=== PATIENT | male | born 1995 | race Caucasian/White ===

== ENCOUNTER 2023-04-03 12:04 | Emergency (ER) | payer SELFPAY ==
[2023-04-03 12:10] VITALS: BP 145/96; PULSE 103; RESP 20; TEMP 36.5; O2SAT 98
[2023-04-03 14:21] VITALS: BP 146/98; RESP 18
--- NOTE | 2023-04-03 14:43 | ED_ITS ---
HPI - Extremity Injury (Lower) General Chief Complaint: Extremity Injury, Lower Stated Complaint: leg pain Time Seen by Provider: 04/03/23 14:33 History of Present Illness HPI Narrative: Patient is a 27-year-old male who presents ER with right thigh discomfort. Reports 1 week ago he was walking when he had a sneeze and his right leg gave out in front of him. He did not fall or strike his head. He has had some soreness in the leg since then. Radiates to the knee. No swelling/numb ness/tingling. No additional injury. He has not been walking with a limp. He has not tried any pain medication. Related Data Allergies Allergy/AdvReac Type Severity Reaction Status Date / Time No Known Allergies Allergy Mild Verified 04/03/23 14:20 Review of Systems Constitutional: Constitutional: Reports no additional constitutional complaints Musculoskeletal: Musculoskeletal: Denies arthralgias, Denies joint swelling and Denies muscle cramps Neurologic: Denies focal weakness and Denies numbness PMFSH Past Medical History Medical History (Updated 04/03/23 @ 19:02 by King Rosenberg MD) Healthy adult male Surgical History Surgical History (Updated 04/03/23 @ 19:02 by King Rosenberg MD) No history of previous surgery Exam Narrative: GENERAL: Well-appearing, well-nourished, and in no acute distress. HEAD: Normocephalic, atraumatic. CHEST: Clear to auscultation. No respiratory distress. HEART: Regular rate and rhythm. Normal peripheral pulses. EXTREMITIES: Normal range of motion. No edema. No evidence of trauma. SKIN: Warm, dry, no rash. NEURO: Alert and oriented x3. PSYCH: Normal mood and affect. Course Course Emergency Course: Normal exam. No indication for x-ray at this time. No lower extremity swelling or cramping. Neurovascular intact. Recommend anti-inflammatories and follow-up with PCP. Vital Signs Vital signs: Vital Signs Temperature 97.7 F 04/03/23 12:10 Pulse Rate 103 H 04/03/23 12:10 Respiratory Rate 20 04/03/23 12:10 Blood Pressure 145/96 H 04/03/23 12:10 Pulse Oximetry 98 04/03/23 12:10 Oxygen Delivery Room Air 04/03/23 12:10 Temperature 97.7 F 04/03/23 12:10 Pulse Rate 103 H 04/03/23 12:10 Respiratory Rate 18 04/03/23 14:21 Blood Pressure 146/98 H 04/03/23 14:21 Pulse Oximetry 98 04/03/23 12:10 Oxygen Delivery Room Air 04/03/23 12:10 Discharge Plan Discharge Clinical Impression: Quadriceps strain Patient Disposition: Home, Self-Care Condition: Stable Instructions: Muscle Strain (ED) Additional Instructions: Return the ER if you suffer new injury, you have chest pain or shortness of breath, you have right sided leg swelling, or you have additional concerns. Prescriptions: New naproxen 375 mg tablet 375 mg PO BID Qty: 14 0RF Follow-up/Referrals: PHYSICIAN,HEALTH SAFETY ENGINEER [Primary Care Provider] - Yogesh Kee MD [Physician] - 1 Week
== END 2023-04-03 15:05 | disposition home or self-care (01) ==
LOC: ANHED 14:58
PROVIDERS: Emergency Provider Emergency Medicine
DX: S76.111A Strain of right quadriceps muscle, fascia and tendon, initial encounter (principal); X50.9XXA Other and unspecified overexertion or strenuous movements or postures, initial encounter
CPT/HCPCS: 99283

== ENCOUNTER 2023-05-26 22:55 | Emergency (ER) | payer SELFPAY ==
[2023-05-26] VITALS (7 sets, daily range): BP systolic 137–149; BP diastolic 77–104; PULSE 75–110; RESP 9–18; TEMP 36.3; O2SAT 98
--- NOTE | 2023-05-26 23:00 | ECG_ITS ---
Measurements Intervals [place] Rate: 88 P: 66 MS: 159 QRS: 29 QRSD: 106 T: 64 QT: 355 QTc: 432 Interpretive Statements SINUS RHYTHM WITH MARKED SINUS ARRHYTHMIA INCOMPLETE RIGHT BUNDLE BRANCH BLOCK NONSPECIFIC T-WAVE ABNORMALITY NO PREVIOUS ECG AVAILABLE FOR COMPARISON Electronically Signed On 05-28-2023 10:16:49 [employer] by Yash Petersen M.D.
--- NOTE | 2023-05-26 23:09 | PC.NURSE ---
Upon family arrival, pt family members states that pt has a hx of fentanyl use, Percocet use, and alcohol abuse. Pt states he is unsure what he took tonight. Pt family member also states that he is unsure what he took tonight as well. EDP Dr. Billings notified of pt condition. Upon family arrival pt began vomitting. Pt is AO x 4 for this RN with a patent airway.
[2023-05-26 23:10] LABS: Hematocrit 43.7 % (42.0-52.0); Hemoglobin 14.3 g/dL (14.0-18.0); Mean Corpuscular HGB Conc 32.7 g/dl (32-36); Mean Corpuscular Hemoglobin 30.4 pg (26-34); Platelet Count Result 312 k/mm3 (150-375); Red Cell Distribution Width 12.6 % (11.5-14.5); White Blood Count 14.1 K/mm3 (4.5-10.0)
[2023-05-26 23:23] LABS: Acetaminophen < 10 ug/mL (10-30); Alanine Aminotransferase 22 U/L (6-50); Albumin Level 4.8 g/dL (3.5-5.1); Alkaline Phosphatase 72 U/L (38-126); Anion Gap 15 mmol/L (8-16); Aspartate Amino Transferase 43 U/L (17-59); Bilirubin,Total 0.5 mg/dL (0.2-1.3); Blood Urea Nitrogen 5 mg/dL (9-20); Calcium 9.2 mg/dL (8.4-10.2); Carbon Dioxide 25 mmol/L (22-30); Chloride 100 mmol/L (98-107); Estimated CRCL calculation 99 ml/min; Estimated Glomerular Filt Rate > 60; Ethanol 173 mg/dL (<10); Glucose 134 mg/dL (65-110); Salicylate < 1.0 mg/dL (2-20); Sodium 140 mmol/L (137-145)
[2023-05-26] MEDS: ONDANSETRON INJ 4 MG/2 ML VIAL 8 MG IV PUSH (23:23)
[2023-05-26] MEDS: SODIUM CHLORIDE 0.9% IV 1,000 ML 999 ML IV CONT (23:24)
[2023-05-26 23:40] LABS: Atypical Lymphocytes Present; Band Neutrophils Percent 2 % (0-6); Eosinophils Absolute Manual 0.84 K/mm3 (0.02-0.5); Eosinophils Percent Manual 6 % (0-4); Large Platelets Present; Monocytes Absolute Manual 0.84 K/mm3 (0.1-0.90); Monocytes Percent Manual 6 % (3-9); Neutrophils Percent Manual 42 % (46-73); Schistocytes None Seen (NORMAL); Total Cells Counted 100
[2023-05-27] VITALS (25 sets, daily range): BP systolic 123–144; BP diastolic 73–93; PULSE 80–101; RESP 8–25; O2SAT 95–96
[2023-05-27 00:20] LABS: SARS-CoV-2 RNA PCR Negative (Negative)
[2023-05-27 00:37] LABS: Appearance Urine Cloudy (Clear); Bacteria Urine None Seen /hpf; Bilirubin Urine Negative (Negative); Blood Urine Negative (Negative); Color Urine Yellow (Yellow); Glucose Urine UA Negative (Negative); Ketones Urine Negative (Negative); Leukocyte Esterase Ur Negative LEU/UL (Negative); Nitrate Urine Negative (Negative); Non Pathogenic Casts 0-2; Protein Urine Negative (Negative); RBC Urine 0-2 /hpf (0-2); Specific Grav Ur 1.006 (1.001-1.035); Squamous Epithelial Cell Urine None seen /hpf (Few); Urobilinogen Urine 0.2 mg/dL (<2.0); WBC Urine 0-5 /hpf
[2023-05-27 00:48] LABS: Amphetamine Screen Urine Negative (Negative); Barbiturate Screen Urine Negative (Negative); Benzodiazepines Screen Urine Negative (Negative); Cannabinoid Screen Urine Positive (Negative); Cocaine Screen Urine Negative (Negative); Methadone Screen Urine Negative (Negative); Opiate Screen Urine Negative (Negative); Phencyclidine Screen Urine Negative (Negative)
[2023-05-27 00:58] LABS: Add Urine Microscopic? YES
--- NOTE | 2023-05-27 02:08 | PC.NURSE ---
Pt family member asked this RN for an update on pt care. THis RN provided an update about pt stability and that provider would be at bedside when they are available to provide an update. Pt family member stated that is what you said last time . This RN notified EDP Dr. Billings. EDP Dr. Billings made aware of patient family requesting an update.
--- NOTE | 2023-05-27 02:22 | ED.GENADULT ---
HPI - General Adult General Chief complaint: Overdose Stated complaint: od Time Seen by Provider: 05/27/23 01:33 History of Present Illness HPI narrative: 27-year-old male with opiate use disorder presenting after an unintentional overdose. Patient states he was snorting opiates get high. He was then found unresponsive by his family. He received multiple rounds of Narcan nasally without response. He then received IV Narcan and immediately woke up. Patient has no complaints this time. Related Data Allergies Allergy/AdvReac Type Severity Reaction Status Date / Time No Known Allergies Allergy Mild Verified 05/26/23 23:00 [facility] Past Medical History Medical History Healthy adult male Surgical History Surgical History No history of previous surgery Social History Social History Substance use type: marijuana Exam Narrative: APPEARANCE: No apparent distress. Head: atraumatic. EYES: EOMI, NOSE: Atraumatic NECK: Trachea midline RESPIRATORY: CTAB, CARDIOVASCULAR: RRR, no peripheral edema ABDOMINAL: Non-distended MUSCULOSKELETAl: No obvious deformities NEURO: Alert. Moving 4/4 extremities SKIN:: Warm, dry. Normal color PSYCHIATRIC: Normal affect Course Vital Signs Vital signs: Vital Signs Temperature 97.4 F L 05/26/23 22:52 Pulse Rate 75 05/26/23 22:52 Respiratory Rate 16 05/26/23 22:52 Blood Pressure 137/77 05/26/23 22:52 Pulse Oximetry 98 05/26/23 22:52 Oxygen Delivery Room Air 05/26/23 22:52 Temperature 97.4 F L 05/26/23 22:52 Pulse Rate 85 05/27/23 02:04 Respiratory Rate 20 05/27/23 02:04 Blood Pressure 126/79 05/27/23 01:46 Pulse Oximetry 98 05/26/23 22:52 Oxygen Delivery Room Air 05/26/23 22:52 Medical Decision Making MDM Narrative Medical decision making narrative: -Course: 27-year-old male presenting with unintentional overdose. Patient was monitored in the ED for 4 hours. Patient had some nausea but no recurrence of opiate coma. Patient will be discharged into custody of his family with return precautions. Given RX for Zofran and Narcan. 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 Likely stress reaction. Urine positive for THC. Potassium 3.0. Patient is tolerating p.o. at this will be repleted with food. Independent EKG interpretation: Rhythm [sinus], Rate [88], [place] -[normal], SD -[normal], QRS [narrow], QTC [normal], T waves -[negative for concerning inversions], ST Segments - [Negative for concerning elevations] Final interpretations: [Normal Sinus Rhythm] -Interventions: Zofran -Shared decision making / Disposition: Discharged -RX Zofran, Narcan Vital Signs Vital Signs: Vital Signs Temperature 97.4 F L 05/26/23 22:52 Pulse Rate 75 05/26/23 22:52 Respiratory Rate 16 05/26/23 22:52 Blood Pressure 137/77 05/26/23 22:52 Pulse Oximetry 98 05/26/23 22:52 Oxygen Delivery Room Air 05/26/23 22:52 Temperature 97.4 F L 05/26/23 22:52 Pulse Rate 85 05/27/23 02:04 Respiratory Rate 20 05/27/23 02:04 Blood Pressure 126/79 05/27/23 01:46 Pulse Oximetry 98 05/26/23 22:52 Oxygen Delivery Room Air 05/26/23 22:52 Lab Data 05/26/23 23:03 05/26/23 23:03 Labs: Lab Results 05/26/23 05/26/23 05/27/23 Range/Units 23:03 23:35 00:24 WBC 14.1 H (4.5-10.0) K/mm3 RBC 4.70 (4.6-6.20) M/mm3 Hgb 14.3 (14.0-18.0) g/dL Hct 43.7 (42.0-52.0) % MCV 93.0 (80-100) fl MCH 30.4 (26-34) pg MCHC 32.7 (32-36) g/dl
[2023-05-27] MEDS: ONDANSETRON INJ 4 MG/2 ML VIAL 8 MG IV PUSH (03:14)
--- NOTE | 2023-05-27 03:38 | PC.NURSE ---
EDP Dr. Billings verbally okayed pt to be discharged.
== END 2023-05-27 03:43 | disposition home or self-care (01) ==
PROVIDERS: Emergency Provider Emergency Medicine
DX: T40.601A Poisoning by unspecified narcotics, accidental (unintentional), initial encounter (principal); I45.10 Unspecified right bundle-branch block; R94.31 Abnormal electrocardiogram [ECG] [EKG]
CPT/HCPCS: 36415; 80053; 80307; 81001; 84443; 85025; 87635; 93005; 96361; 96374; 99284; J2405; J7030

== ENCOUNTER 2023-09-07 10:44 | Emergency (ER) | payer SELFPAY ==
--- NOTE | ~2023-09-07 | CT_ITS ---
EXAMINATION: CT brain wo con DATE: 09/07/2023 13:47 INDICATION: Dizziness, lightheadedness TECHNIQUE: Computed tomography (CT) of the head was performed without intravenous contrast. The mA wa s adjusted according to patient size. Iterative reconstruction technique was employed. Exam dose: 68 1.00 mGy-cm total exam DLP. COMPARISON: None FINDINGS: No intracranial mass lesion or hemorrhage or cerebrovascular accident or encephalomalacia. No midline shift or mass effect. Normal ventricular size. Normal reyes-white matter differentiation. No subdural or epidural hematoma. The orbital contents appear normal. The mastoid air cells and included paranasal sinuses are normally developed and aerated. No fracture or bone destruction of the cranial vault. IMPRESSION: Normal examination Reviewed, dictated and finalized at [facility]. Reviewed, dictated and finalized at location [facility]. IMPRESSION: Normal examination
[2023-09-07 11:28] VITALS: BP 123/73; PULSE 84; RESP 16; TEMP 36.6; O2SAT 100
[2023-09-07 11:34] LABS: Glucose Point of Care 104 mg/dl (65-105)
--- NOTE | 2023-09-07 13:22 | ED.DIZZY ---
HPI - Dizziness General Chief Complaint: Dizziness <LUC Abdi Last Filed: 09/07/23 13:30> Stated Complaint: DIZZINESS TODAY <LUC Abdi Last Filed: 09/07/23 13:30> Time Seen by Provider: 09/07/23 13:22 <LUC Abdi Last Filed: 09/07/23 13:30> Focused HPI: Patient is a 27 y/o male who presents to the ED with c/o dizziness. 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 Describes it as feeling lightheaded and somewhat room spinning. He then prompted here. He does still feel mildly dizzy currently. Reports intermittent WILLIS today, mild blurry vision which has since resolved. Denies syncope, focal weakness/numbness, N/V, CP, SOB. Reports similar episode of lightheadedness a few weeks ago which resolved on its own. States he has been drinking plenty of fluids. GENERAL: Well-appearing, thin, and in no acute distress. HEAD: Normocephalic, atraumatic. EYES: PERRL/EOMI CHEST: Clear to auscultation. ?No respiratory distress. HEART: Regular rate and rhythm.? NEURO: ?Alert and oriented x3. No focal deficits. Patient screened in triage and initial orders placed.? ?Additional care and disposition to be based upon?diagnostic testing and treatment. <LUC Abdi Last Filed: 09/07/23 13:30> Source: patient <LUC Abdi Last Filed: 09/07/23 13:30> Mode of arrival: ambulatory <LUC Abdi Last Filed: 09/07/23 13:30> Limitations: no limitations <LUC Abdi Last Filed: 09/07/23 13:30> History of Present Illness HPI Narrative: Patient is a 27-year-old male presents ER with dizziness. 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 Spinning in nature. Associated sweats and nausea. Ended up in the refrigerator trying to cool off. No fevers or chills or sweats. No chest pain or chest pressure. No numbness or tingling to an arm or leg. Has had similar symptoms previously. <King Rosenberg MD - Last Filed: 09/07/23 18:31> Related Data Allergies/Adverse Reactions: Allergies Allergy/AdvReac Type Severity Reaction Status Date / Time No Known Allergies Allergy Mild Verified 05/26/23 23:00 <Ritu Khan PA-C - Last Filed: 09/07/23 13:30> Review of Systems Constitutional: Constitutional: Reports no additional constitutional complaints <King Rosenberg MD - Last Filed: 09/07/23 18:31> ENT: Reports vertigo, Denies nasal congestion and Denies sore throat <King Rosenberg MD - Last Filed: 09/07/23 18:31> Cardiovascular: Cardiovascular: Reports no additional cardiovascular complaints <King Rosenberg MD - Last Filed: 09/07/23 18:31> Gastrointestinal: Gastrointestinal: Denies abdominal pain, Denies diarrhea, Reports nausea and Denies vomiting <King Rosenberg MD - Last Filed: 09/07/23 18:31> PMFSH Past Medical History Medical History: Medical History Healthy adult male <Ritu Khan PA-C - Last Filed: 09/07/23 13:30> Surgical History Surgical History: Surgical History No history of previous surgery <Ritu Khan PA-C - Last Filed: 09/07/23 13:30> Social History Social History: Social History Substance use type: marijuana <Ritu Khan PA-C - Last Filed: 09/07/23 13:30> Exam Narrative: GENERAL: Well-appearing, well-nourished, and in no acute distress. HEAD: Normocephalic, atraumatic. EYES: PERRL and EOMI. ENT: Mucous membranes moist. Cerumen impaction bilaterally. NECK: Supple. CHEST: Clear to auscultation. No respiratory distress. HEART: Regular rate and rhythm. Normal peripheral pulses. EXTREMITIES: Normal range of motion. No edema. NEURO: Alert and oriented x3. PSYCH: Nor
[2023-09-07] MEDS: SODIUM CHLORIDE 0.9% IV 1,000 ML 999 ML IV CONT (13:42)
[2023-09-07 13:43] VITALS: BP 119/80; PULSE 74
[2023-09-07 13:46] VITALS: BP 121/86; PULSE 80
[2023-09-07 13:47] VITALS: BP 119/84; PULSE 88
[2023-09-07 13:53] LABS: Basophils Percent Auto 0.2 % (0.2-1.2); Eosinophils Percent Auto 0.1 % (0-4.4); Hemoglobin 16.2 g/dL (14.0-18.0); Immature Granulocyte Absolute 0.11 K/mm3 (0.00-0.031); Immature Granulocyte Percent A 0.7 % (0-0.5); Lymphocytes Percent Auto 4.4 % (18.3-44.2); Mean Corpuscular HGB Conc 33.1 g/dl (32-36); Mean Corpuscular Hemoglobin 31.5 pg (26-34); Mean Corpuscular Volume 95.1 fl (80-100); Mean Platelet Volume 11.5 fl (7.4-10.4); Monocytes Absolute Auto 0.7 K/mm3 (0.1-0.6); Monocytes Percent Auto 4.6 % (2.6-8.5); Neutrophils Absolute Auto 14.2 K/mm3 (1.3-6.7); Platelet Count Result 270 k/mm3 (150-375); Red Blood Count 5.15 M/mm3 (4.6-6.20); Red Cell Distribution Width 12.8 % (11.5-14.5); White Blood Count 15.7 K/mm3 (4.5-10.0)
[2023-09-07 14:02] LABS: Appearance Urine Clear (Clear); Bacteria Urine None Seen /hpf; Bilirubin Urine Negative (Negative); Blood Urine Non-Hemolyzed Trace (Negative); Color Urine Yellow (Yellow); Glucose Urine UA Negative (Negative); Ketones Urine 2+ mg/dL (Negative); Leukocyte Esterase Ur Negative LEU/UL (Negative); Nitrate Urine Negative (Negative); Non Pathogenic Casts 0-2; Protein Urine Negative (Negative); Specific Grav Ur 1.028 (1.001-1.035); Squamous Epithelial Cell Urine None Seen /hpf (Few); WBC Urine 0-5 /hpf (0-3)
[2023-09-07 14:06] LABS: Alanine Aminotransferase 27 U/L (6-50); Albumin Level 5.4 g/dL (3.5-5.1); Alkaline Phosphatase 74 U/L (38-126); Anion Gap 9 mmol/L (8-16); Aspartate Amino Transferase 40 U/L (17-59); Bilirubin,Total 1.1 mg/dL (0.2-1.3); Blood Urea Nitrogen 12 mg/dL (9-20); Calcium 9.6 mg/dL (8.4-10.2); Carbon Dioxide 29 mmol/L (22-30); Chloride 98 mmol/L (98-107); Estimated CRCL calculation 154 ml/min; Estimated Glomerular Filt Rate > 60; Glucose 103 mg/dL (65-110); Sodium 136 mmol/L (137-145)
[2023-09-07 14:14] LABS: Add Urine Microscopic? YES
[2023-09-07 14:16] LABS: Amphetamine Screen Urine Negative (Negative); Barbiturate Screen Urine Negative (Negative); Benzodiazepines Screen Urine Negative (Negative); Cannabinoid Screen Urine Positive (Negative); Cocaine Screen Urine Negative (Negative); Methadone Screen Urine Negative (Negative); Opiate Screen Urine Negative (Negative); Phencyclidine Screen Urine Negative (Negative)
[2023-09-07] MEDS: MECLIZINE HCL 25 MG TABLET PO (14:32)
[2023-09-07 16:15] VITALS: BP 129/89; PULSE 72; RESP 16; O2SAT 99
== END 2023-09-07 16:28 | disposition home or self-care (01) ==
PROVIDERS: Physician Assistant; Emergency Provider Emergency Medicine
DX: R42 Dizziness and giddiness (principal); H61.23 Impacted cerumen, bilateral
CPT/HCPCS: 36415; 69210; 70450; 80053; 80307; 82948; 83735; 85025; 96360; 99284; A9270; J7030

== ENCOUNTER 2025-03-06 13:44 | Emergency (ER) | payer SELFPAY ==
[2025-03-06 13:58] VITALS: BP 145/105; PULSE 99; RESP 16; TEMP 36.2; O2SAT 99
--- NOTE | 2025-03-06 14:09 | ED.NAVMDI ---
HPI - Nausea/Vomiting/Diarrhea General Chief complaint: Nausea/Vomiting/Diarrhea Stated complaint: N / V / S body aches Time Seen by Provider: 03/06/25 14:09 Source: patient, RN notes reviewed and old records reviewed Mode of arrival: ambulatory Limitations: no limitations History of Present Illness HPI Narrative: 29-year-old presents to [facility] with complaints nausea, vomiting and diarrhea with some body aches since Monday. Patient reports that he was sent home from work on Monday. Patient reports that his mother tested positive for COVID last week. Patient reports that he has some stomach cramping and today he has had some leg cramping. He states that last diarrhea stool was yesterday and he was able to eat a small amount of food last night and he has kept down fluids today. Patient reports that he has not had any fevers chills or any sweats MD elicited complaint: nausea, vomiting, diarrhea and other (body aches) Onset (ago): day(s) ( 5 days) Description of vomiting: food contents Description of diarrhea: watery Associated nausea: Yes Associated abdominal pain: Yes Location of pain: epigastric Radiation: does not radiate Severity: mild Pain scale (0-10): 2 Treatment prior to arrival: none Related Data Allergies Allergy/AdvReac Type Severity Reaction Status Date / Time No Known Allergies Allergy Mild Verified 05/26/23 23:00 Review of Systems Review of Systems: CONSTITUTIONAL: Denies fever, chills, or sweats. EYES: Denies visual changes, redness, or discharge. ENT: Denies rhinorrhea, congestion, sore throat, or otalgia. CARDIOVASCULAR: Denies chest pain, palpitations, or edema. RESPIRATORY: Denies cough or dyspnea. GASTROINTESTINAL: reports crampy abdominal pain, nausea, vomiting, and diarrhea. GENITOURINARY: Denies dysuria or hematuria. SKIN: Denies rash or itching. MUSCULOSKELETAL: Denies back pain, joint pain, states some leg cramps today NEUROLOGIC: Denies headache, numbness, states he feels weak PSYCHIATRIC: Denies anxiety or depression. All systems reviewed & are unremarkable except as noted in HPI and below PMFSH Past Medical History Medical History Drug overdose Healthy adult male Surgical History Surgical History No history of previous surgery Family History Family History Grandparent Heart disease Diabetes mellitus Social History Social History Smoking status: Never smoker Alcohol intake: current Alcohol use details: social Substance use: current Substance use type: marijuana Comments At time of signature, agree with nursing past medical, surgical, social and family history. There is no relevant family history pertinent to the presenting complaint Exam Narrative: GENERAL: Well-appearing, well-nourished, and in no acute distress. HEAD: Normocephalic, atraumatic. EYES: PERRLA and EOMI. ENT: Nares clear, no rhinorrhea or epistaxis. Mucous membranes moist.TM's normal with some wax noted, throat pink with no swelling or redness NECK: Supple. no lymphadenopathy CHEST: Clear to auscultation. No respiratory distress.SAO2 99% on room air HEART: Regular rate and rhythm. No murmur heard. Normal peripheral pulses. ABDOMEN: Soft, nontender to palpation , nondistended, normal active bowel sounds. crampy epigastric discomfort verbalized no pain on palpation EXTREMITIES: Normal range of motion. No edema. reports some leg cramps today SKIN: Warm, dry, no rash. NEURO: No focal deficits. Alert and oriented x3. Course Course Emergency Course: Patient is aware of diagnosis, understands and agrees to treatment plan.? Anticipatory guidance given.? Patient agrees to follow-up as directed and is aware of reasons to seek care at the emergency department. Portions of this record may have been created with voice recognition software Level of Care: Express Care Visit Vital Signs Vital signs: Vital Signs Temperature 36.2 C L 03/06/25 13:58 Pulse Rate 99 03/06/25 13:58 Respiratory Rate 16 03/06/25 13:58 Blood Pressure 145/105 H 03/06/25 13:58 Pulse Oximetry 99 03/06/25 13:58 Temperature 36.2 C L 03/06/25 13:58 Pulse Rate 99 03/06/25 13:58 Respiratory Rate 16 03/06/25 13:58 Blood Pressure 145/105 H 03/06/25 13:58 Pulse Oximetry 99 03/06/25 13:58 reviewed MDM - Nausea/Vomiting/Diarrhea Differential Diagnosis Differential diagnosis: Likely food poisoning, gastroenteritis, dehydration and other (N,V,D) Medical Records Attestation: I reviewed the patient's medical records. Lab Data Attestation: I reviewed the patient's lab results. Lab results narrative: strep screen negative, culture sent, COVID antigen negative, Influenza A&B negative Labs: Lab Results 03/06/25 Range/Units 14:31 POC Influenza A Ag Negative (Negative) POC Influenza B Ag Negative (Negative) POC SARS CoV-2 Ag Negative (Negative) POC Grp A Strep Screen Negative (Negative) reviewed Critical Care Time Critical Care Time Critical Care Time: No Discharge Plan Discharge Clinical Impression: Gastroenteritis, Abdominal cramping Patient Disposition: Home Condition: Stable Instructions: Gastroenteritis (ED), Viral Syndrome (ED) Additional Instructions: Clear liquids for the next 8-10 hours, then advance to a bland diet as tolerated, can include Pedialyte and Gatorade A bland diet can consist of--BRAT diet which is bananas, rice, applesauce, and toast Avoid fried, greasy, fatty, fried foods Avoid caffeine, nicotine, and alcohol Return to your regular diet in the next 3-4 days Medication as directed for nausea and vomiting Sometimes ibuprofen/Aleve can cause increased stomach upset [id number] Imodium if develop diarrhea Follow-up with her PCP if continued problems or uncontrolled pain monitor for any fevers If your symptoms persist, change or worsen significantly before you can contact your personal physician then please, without delay, go to the emergency department for further evaluation. Follow-up with PCP in 7-10 days or sooner if needed Follow up with PCP soon in regards to your blood pressure which is elevated above threshold for referral. Blood pressure above 120/80 may indicate pre-hypertension. 145/105 Patient Language: Senegalese Prescriptions: New famotidine [Pepcid] 20 mg tablet 20 mg PO DAILY Qty: 30 0RF ondansetron 4 mg tablet,disintegrating 4 mg PO Q6H PRN (Reason: nausea and vomiting) Qty: 20 0RF No Action naproxen 375 mg tablet 375 mg PO BID Qty: 14 0RF ondansetron 4 mg tablet,disintegrating 4 mg PO Q8H PRN (Reason: nausea and vomiting) Qty: 30 0RF naloxone [Narcan] 4 mg/actuation spray,non-aerosol 4 mg intranasal Q2M PRN (Reason: opioid overdose) Qty: 2 0RF Rx Instructions: spray 1 dose into ONE nostril; alternate nostrils w each dose until help arrives Ear Wax Drops 6.5 % drops 5 drp EACH EAR Q12H 4 Days Qty: 15 0RF meclizine 12.5 mg tablet 12.5 mg PO TID PRN (Reason: motion sickness) Qty: 14 0RF Follow-up/Referrals: PHYSICIAN,SYSTEMS SECURITY CONSULTANT [Primary Care Provider, Internal Medicine] Stand Alone Forms: Work/School Release IP Time of Disposition: 14:40 Quality [place] Coma Scale Eyes: Open Verbal: Oriented and Alert Motor: Follows Commands [place] Coma Total Score: 15
[2025-03-06 14:33] LABS: EDCOVIDSCREEN Negative (Negative); EDINFLUASCREEN Negative (Negative); EDINFLUBSCREEN Negative (Negative); EDSTREPNEGPOS1 Negative (Negative)
== END 2025-03-06 14:48 | disposition home or self-care (01) ==
PROVIDERS: Emergency Provider Registered Nurse
DX: K52.9 Noninfective gastroenteritis and colitis, unspecified (principal); R10.13 Epigastric pain; Z20.822 Contact with and (suspected) exposure to COVID-19; F12.90 Cannabis use, unspecified, uncomplicated
CPT/HCPCS: 87081; 87426; 87804; 87880; 99213; G0463

== ENCOUNTER 2025-03-09 17:19 | Emergency (ER) | payer SELFPAY ==
--- NOTE | ~2025-03-09 | CT_ITS ---
EXAMINATION: CT abdomen pelvis w con DATE: 03/09/2025 20:02 INDICATION: Nausea, vomiting, and diarrhea. Elevated lipase. TECHNIQUE: Computed tomography (CT) of the abdomen and pelvis was performed with 100 mL Omnipaque 350 intravenous contrast. Automated exposure control and iterative reconstruction technique were employed. The dose-length product was 217.38 mGy-cm. COMPARISON: None. FINDINGS: The visualized portions of the lung bases are clear without pneumonia or pleural effusion. The heart size is normal. No pericardial effusion. There is diffuse hepatic steatosis. The gallbladder, spleen, and adrenal glands are normal. There is fat stranding around the head of the pancreas, consistent with acute interstitial pancreatitis. The kidneys are normal. There are no dilated loops of bowel. The appendix is normal. There are no pathologically enlarged lymph nodes. There is no free intraperitoneal fluid. There is mild thoracic and lumbar spondylosis. IMPRESSION: 1. Acute interstitial pancreatitis. 2. Diffuse hepatic steatosis. Reviewed, dictated and finalized at location [facility].
--- OUTSIDE RECORDS SUMMARY | 2025-03-09 17:21 | XMS_ITS | Encounter Summary ---
Author Organization [facility] Address 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
--- OUTSIDE RECORDS SUMMARY | 2025-03-09 17:21 | XMS_ITS | Encounter Summary ---
Author Organization [facility] Address 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
[2025-03-09 17:32] VITALS: BP 132/85; PULSE 72; RESP 18; TEMP 36.5; O2SAT 98
[2025-03-09] MEDS: LACTATED RINGERS 1,000 ML 999 ML IV CONT (19:12)
[2025-03-09] MEDS: METOCLOPRAMIDE HCL INJ 10 MG/2 ML VIAL IV PUSH (19:13)
[2025-03-09 19:20] LABS: Hematocrit 45.3 % (42.0-52.0); Hemoglobin 15.3 g/dL (14.0-18.0); Immature Granulocyte Percent A 0.5 % (0-0.5); Lymphocytes Absolute Auto 0.57 K/mm3 (0.9-3.2); Mean Corpuscular HGB Conc 33.8 g/dl (32-36); Mean Corpuscular Hemoglobin 31.3 pg (26-34); Mean Corpuscular Volume 92.6 fl (80-100); Nucleated Red Blood Cells Absolute Auto 0.000 K/mm3 (0.0-0.012); Nucleated Red Blood Cells Perc 0.0 % (0.0-0.2); Platelet Count Result 261 k/mm3 (150-375); Red Blood Count 4.89 M/mm3 (4.6-6.20); White Blood Count 16.9 K/mm3 (4.5-10.0)
[2025-03-09 19:32] LABS: Alanine Aminotransferase 84 U/L (6-50); Albumin Level 5.1 g/dL (3.5-5.1); Alkaline Phosphatase 97 U/L (38-126); Anion Gap 14 mmol/L (4-12); Aspartate Amino Transferase 133 U/L (17-59); Bilirubin,Total 1.1 mg/dL (0.2-1.3); Blood Urea Nitrogen 7 mg/dL (9-20); Calcium 9.9 mg/dL (8.4-10.2); Carbon Dioxide 32 mmol/L (22-30); Chloride 93 mmol/L (98-107); Estimated CRCL calculation 113 ml/min; Estimated Glomerular Filt Rate > 60; Glucose 153 mg/dL (65-110); Lipase 305 U/L (23-300); Potassium 3.9 mmol/L (3.4-5.0); Sodium 139 mmol/L (137-145); Total Protein 9.6 g/dL (6.3-8.2)
[2025-03-09 19:45] LABS: Magnesium 1.3 mg/dL (1.6-2.3)
[2025-03-09] MEDS: MAGNESIUM SULF 2 GM/WATER 50ML 2 GM/50 ML BAG IVPB (20:25)
[2025-03-09 20:28] VITALS: BP 147/100; PULSE 109; RESP 20; O2SAT 98
[2025-03-09 22:32] VITALS: BP 148/98; PULSE 86; RESP 18; O2SAT 98
[2025-03-09] MEDS: PHENobarbitaL sodium (*CRX) 130 MG/ML VIAL 260 MG IV PUSH (22:35)
--- NOTE | 2025-03-10 01:43 | ED_ITS ---
HPI - Nausea/Vomiting/Diarrhea General Chief complaint: Nausea/Vomiting/Diarrhea Stated complaint: n/v Time Seen by Provider: 03/09/25 18:54 History of Present Illness HPI Narrative: Patient presents here with nausea and vomiting, ongoing for last few weeks. Thinks he might be dehydrated. No abdominal pain other than when he is throwing up. Related Data Allergies Allergy/AdvReac Type Severity Reaction Status Date / Time No Known Allergies Allergy Mild Verified 03/09/25 17:38 Review of Systems 2 Review of Systems: All systems reviewed & are unremarkable except as noted in HPI and below PMFSH Past Medical History Medical History Drug overdose Healthy adult male Surgical History Surgical History No history of previous surgery Family History Family History Grandparent Heart disease Diabetes mellitus Social History Social History Smoking status: Never smoker Alcohol intake: current Alcohol use details: social Substance use: current Substance use type: marijuana Exam 2 Narrative: EXAMINATION OF ORGAN SYSTEMS/BODY AREAS: Constitutional: Vital signs per nursing GENERAL: Appears uncomfortable and holding emesis bag HEAD: Normal with no signs of head trauma. EYES: EOMI, conjunctiva normal ENT: Hearing grossly intact LUNGS: Nonlabored breathing. HEART: [Regular rate and rhythm] ABD: [Soft], [nontender to palpation] EXT: Normal range of motion SKIN: [No rashes or lesions.] NEURO: [Alert and oriented x 3. No gross focal sensory or strength deficits.] PSYCH: Normal affect Course Vital Signs Vital signs: Vital Signs Temperature 97.7 F 03/09/25 17:32 Pulse Rate 72 03/09/25 17:32 Respiratory Rate 18 03/09/25 17:32 Blood Pressure 132/85 03/09/25 17:32 Pulse Oximetry 98 03/09/25 17:32 Oxygen Delivery Room Air 03/09/25 17:32 Temperature 97.7 F 03/09/25 17:32 Pulse Rate 86 03/09/25 22:32 Respiratory Rate 18 03/09/25 22:32 Blood Pressure 148/98 H 03/09/25 22:32 Pulse Oximetry 98 03/09/25 22:32 Oxygen Delivery Room Air 03/09/25 17:32 MDM - Nausea/Vomiting/Diarrhea MDM Narrative Medical decision making narrative: Patient presenting here with nausea vomiting, labs concerning for white count of 16.9, magnesium 1.3, AST 133 and ALT 84 with lipase of 305. I did speak with the patient who now admits that he does drink alcohol heavily. He is counseled to stop drinking since this is likely causing his electrolyte abnormalities as well as pancreatitis and alcoholic hepatitis. CT obtained is consistent with likely acute pancreatitis. He is given fluids, nausea medicine, and on re-evaluation, patient states that his symptoms have completely resolved he wants to go home. After long discussion the patient, he denies ever having severe alcohol withdrawal, though he does sometimes get shakes and diarrhea, I will therefore give him a dose of phenobarbital to help with the withdrawal, but he is given strict return precautions and family at bedside also expressed understanding and agreement Lab Data 03/09/25 19:12 03/09/25 19:12 Labs: Lab Results 03/09/25 03/09/25 Range/Units 19:12 20:25 WBC 16.9 H (4.5-10.0) K/mm3 RBC 4.89 (4.6-6.20) M/mm3 Hgb 15.3 (14.0-18.0) g/dL Hct 45.3 (42.0-52.0) % MCV 92.6 (80-100) fl MCH 31.3 (26-34) pg MCHC 33.8 (32-36) g/dl RDW 12.9 (11.5-14.5) % Plt Count 261 (150-375) k/mm3 MPV 9.9 (7.4-10.4) fl Immature Gran % (Auto) 0.5 (0-0.5) % Neut % (Auto) 90.0 H (45.5-73.1) % Lymph % (Auto) 3.4 L (18.3-44.2) % [place] % (Auto) 5.9 (2.6-8.5) % Eos % (Auto) 0.0 (0-4.4) % Baso % (Auto) 0.2 (0.2-1.2) % Lymph # (Auto) 0.57 L (0.9-3.2) K/mm3 [place] # (Auto) 1.0 H (0.1-0.6) K/mm3 Eos # (Auto) 0.0 (0-0.3) K/mm3 Baso # (Auto) 0.0 (0.0-0.1) K/mm3 Abs Immat Gran (auto) 0.08 H (0.00-0.031) K/mm3 Absolute Neuts (auto) 15.2 H (1.3-6.7) K/mm3 Absolute Nucleated RBC 0.000 (0.0-0.012) K/mm3 Nucleated RBC % 0.0 (0.0-0.2) % Sodium 139 (137-145) mmol/L Potassium 3.9 (3.4-5.0) mmol/L Chloride 93 L (98-107) mmol/L Carbon Dioxide 32 H (22-30) mmol/L Anion Gap 14 H (4-12) mmol/L BUN 7 L D (9-20) mg/dL Creatinine 0.81 (0.7-1.3) mg/dL Estim Creat Clear Calc 113 ml/min Estimated GFR > 60 (59 - ) Glucose 153 H (65-110) mg/dL Calcium 9.9 (8.4-10.2) mg/dL Magnesium 1.3 L (1.6-2.3) mg/dL Total Bilirubin 1.1 (0.2-1.3) mg/dL AST 133 H (17-59) U/L ALT 84 H (6-50) U/L Alkaline Phosphatase 97 (38-126) U/L Total Protein 9.6 H (6.3-8.2) g/dL Albumin 5.1 (3.5-5.1) g/dL Lipase 305 H (23-300) U/L Ethyl Alcohol < 10 (<10) mg/dL Discharge Plan Discharge Clinical Impression: Pancreatitis, Alcohol use disorder, Transaminitis Patient Disposition: Home Condition: Stable Instructions: Pancreatitis (ED), Alcohol Use Disorder (ED), Alcoholic Hepatitis (ED) Additional Instructions: Please stop drinking alcohol it is causing severe damage to your pancreas and liver, and also causing electrolyte imbalance. Please follow up with the GI specialist come back to the emergency room if your pain returns or worsens, or if you start going into withdrawal (severe nausea, vomiting, diarrhea, shakes, or seizures etc) or anything else concerning. Patient Language: Nepali Prescriptions: New acetaminophen [Tylenol Extra Strength] 500 mg tablet 500 mg PO Q6H PRN (Reason: pain) Qty: 30 0RF famotidine 20 mg tablet 20 mg PO DAILY Qty: 30 0RF ondansetron 4 mg tablet,disintegrating 4 mg PO Q8H PRN (Reason: nausea and vomiting) Qty: 20 0RF No Action famotidine [Pepcid] 20 mg tablet 20 mg PO DAILY Qty: 30 0RF ondansetron 4 mg tablet,disintegrating 4 mg PO Q6H PRN (Reason: nausea and vomiting) Qty: 20 0RF naproxen 375 mg tablet 375 mg PO BID Qty: 14 0RF ondansetron 4 mg tablet,disintegrating 4 mg PO Q8H PRN (Reason: nausea and vomiting) Qty: 30 0RF naloxone [Narcan] 4 mg/actuation spray,non-aerosol 4 mg intranasal Q2M PRN (Reason: opioid overdose) Qty: 2 0RF Rx Instructions: spray 1 dose into ONE nostril; alternate nostrils w each dose until help arrives Ear Wax Drops 6.5 % drops 5 drp EACH EAR Q12H 4 Days Qty: 15 0RF meclizine 12.5 mg tablet 12.5 mg PO TID PRN (Reason: motion sickness) Qty: 14 0RF Follow-up/Referrals: PHYSICIAN,SERVICE TRANSFORMER REPAIR SUPERVISOR [Primary Care Provider, Internal Medicine] Jean-Claude Briggs MD [Physician, Gastroenterology] - 2 Days
== END 2025-03-09 22:46 | disposition home or self-care (01) ==
PROVIDERS: Emergency Provider Emergency Medicine
DX: K85.90 Acute pancreatitis without necrosis or infection, unspecified (principal); F10.90 Alcohol use, unspecified, uncomplicated; Y90.0 Blood alcohol level of less than 20 mg/100 ml; R74.01 Elevation of levels of liver transaminase levels
CPT/HCPCS: 36415; 74177; 80053; 82077; 83690; 83735; 85025; 96365; 96366; 96375; 99284; J2560; J2765; J3475; J7120; Q9967